=== PATIENT | female | born 1935 | race African-American/Black ===

== ENCOUNTER 2016-11-29 19:23 | Inpatient (IN) | payer MEDICARE, MEDICAID ==
[~2016-11-29] VITALS: Ht 175.3 cm; Wt 71.0 kg
[~2016-11-29 19:23] MED LIST: ARIC10TA PO; DOCU1CAP39 PO; GABA300C3 PO; HYDR-3111 PO; METH5TAB4 PO; METO50TA PO; ROBISYP PO; [UNRECOGNIZED DRUG - CODE] PO
[2016-11-29 19:38] VITALS: BP 198/98; PULSE 105; RESP 18; TEMP 97.4; O2SAT 95
--- NOTE | 2016-11-29 19:43 | PD ---
HPI Chief Complaint: hypertension Time Seen by Provider: 19:36 Travel History International Travel<30 days: No Contact w/Intl Traveler<30days: No History of Present Illness HPI The patient is a 81 year old female who presents to the [facility] emergency department with a history of generalized weakness, increased fatigue today, associated with elevated blood pressure. Initially it was told that the patient's metoprolol was discontinued yesterday according to ambulance services , however I was then informed that the patient's metoprolol was not controlling her blood pressure today, therefore clonidine was administered in the afternoon at 0.1 mg by mouth 1. The patient has had nausea and vomiting 2. The patient having nausea at this time. According to the long-term and ambulance services the patient is normally alert and oriented 2. The patient appears to be at her baseline of mentation at this time. The patient has a cough on examination. She denies being aware of when this began. Upon ambulance services arrival the patient was noted to have O2 saturations on room air of 90%. Her blood sugar prior to arrival was 109. On review of systems, the patient denies having any known fevers, neck pain, chest pain, shortness of breath, abdominal pain, diarrhea, urinary symptoms, or new neurologic symptoms. 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 AICD: No Genitourinary Surgery: No Neurologic Surgery: Yes (SDH WITH CLIPPING) Pacemaker: No Other Surgery: Yes (SHUNT (HYDROCEPHALUS)) Social History Alcohol Use: No Tobacco Use: No Substance Use: No Allergies-Medications (Allergen,Severity, Reaction): Coded Allergies: MRI PRECAUTION (Verified Adverse Reaction, Unknown, PT HAS ANUERYSM CLIPS , 02/12/12) Reported Meds & Prescriptions Reported Meds & Active Scripts Active Reported Clonidine (Clonidine HCl) 0.1 Mg Tab 0.1 Mg PO DAILY PRN Citroma Liq (Magnesium Citrate) 300 Ml Liq 300 Ml PO IN AM PRN Lipitor (Atorvastatin Calcium) 10 Mg Tab 10 Mg PO HS Voltaren (Diclofenac Sodium) 1 % Gel..gram. 1 Applic TOPICAL Q8HR PRN Apply to bilateral knees Oxycodone (Oxycodone HCl) 10 Mg Tab 10 Mg PO Q6H PRN Zofran (Ondansetron HCl) 4 Mg Tab 4 Mg PO Q6HR PRN Namenda Xr (Memantine) 14 Mg Caper 14 Mg PO DAILY Milk of Magnesia Liq (Magnesium Hydroxide) 400 Mg/5 Ml Susp 30 Ml PO HS PRN Lopressor (Metoprolol Tartrate) 50 Mg Tab 50 Mg PO BID Methimazole 5 Mg Tab 7.5 Mg PO BID Gabapentin 600 Mg Tab 600 Mg PO TID Enema Disposable (Sodium Phosphates) 19 Gram-7 Gram/118 Ml Lorenza 1 Applic RECTAL ONCE PRN Dulcolax Supp (Bisacodyl) 10 Mg Supp 10 Mg RECTAL IN AM PRN Aricept (Donepezil HCl) 10 Mg Tablet 10 Mg PO HS Colace (Docusate Sodium) 100 Mg Capsule 100 Mg PO HS Cymbalta DR (Duloxetine HCl) 20 Mg Capdr 20 Mg PO BID Review of Systems Except as stated in HPI: all other systems reviewed are Neg General / Constitutional: No: Fever Eyes: No: Visual changes HENT: Positive: Congestion, No: Headaches Cardiovascular: No: Chest Pain or Discomfort Respiratory: Positive: Cough, No: Shortness of Breath Gastrointestinal: Positive: Nausea, Vomiting, Loss of Appetite (that began today), No: Diarrhea, Abdominal Pain, Changes in Bowel Habits, Indigestion Genitourinary: No: Dysuria Musculoskeletal: No: Pain Skin: No Rash Neurologic: No: Weakness Psychiatric: No: Depression Endocrine: No: Polydipsia Hematologic/Lymphatic: No: Easy Bruising Physical Exam Narrative General: The patient is a well-developed well-nourished female in no acute distress. Head and Neck exam: Head is normocephalic atraumatic. Eyes: EOMI, pupils are equal round and reactive to light. Nose: Midline septum with pink mucous membranes Mouth: Dentition unremarkable. Moist mucus membranes. Posterior oropharynx is not erythematous. No tonsillar hypertrophy. Uvula midline. Airway patent. Neck: No palpable lymphadenopathy. No nuchal rigidity. No thyromegaly. Cardiovascular: Sinus tachycardia in the low 100 without murmurs, gallops, or rubs. No pulse deficit to the extremities and simultaneous auscultation and palpation of her radial artery. Lungs: The patient has scattered rhonchi in bilateral lung novak with a productive sounding cough on examination. Abdomen: Soft, without tenderness to palpation in all 4 quadrants of the abdomen. No guarding, rebound, or rigidity. Normal bowel sounds are audible. No tenderness on palpation of McBurney's point. Extremities: No clubbing, cyanosis, or edema. 2+ pulses in all 4 extremities. 2+ pulses in all 4 extremities. The patient has contractures noted of the left upper and left lower extremity related to her prior stroke. Back: No costovertebral angle tenderness to palpation. Neurologic Exam: Strength is 5 over 5 in the right upper and right lower extremity. The patient's strength in her left upper and left lower extremity are diminished with paresis related to her prior stroke. No evidence of facial asymmetry. The patient does have contractures noted of her left upper and left lower extremity. The patient appears to be at her baseline regarding her neurologic exam. Skin Exam: No rash noted. Intact skin that is warm and dry. The patient is somewhat pale appearing on exam. Data Data Last Documented VS Vital Signs Date Time Temp Pulse Resp B/P (MAP) Pulse Ox O2 Delivery O2 Flow Rate FiO2 11/29/16 21:06 90 18 151/92 (111) 96 Nasal Cannula 2.00 11/29/16 19:38 97.4 Orders Orders Electrocardiogram (11/29/16 19:36) Complete Blood Count With Diff (11/29/16 19:36) Comprehensive Metabolic Panel (11/29/16 19:36) Creatine Kinase (Cpk) (11/29/16 19:36) Ckmb (Isoenzyme) Profile (11/29/16 19:36) Troponin I (11/29/16 19:36) B-Type Natriuretic Peptide (11/29/16 19:36) Prothrombin Time / Inr (Pt) (11/29/16 19:36) Act Partial Throm Time (Ptt) (11/29/16 19:36) Blood Culture (11/29/16 19:36) Lipase (11/29/16 19:36) Urinalysis - C+S If Indicated (11/29/16 19:36) Magnesium (Mg) (11/29/16 19:36) Chest, Single Ap (11/29/16 19:36) Ct Brain W/O Iv Contrast(Rout) (11/29/16 19:36) Iv Access Insert/Monitor (11/29/16 19:36) Ecg Monitoring (11/29/16 19:36) Oximetry (11/29/16 19:36) Lactic Acid Sepsis Protocol (11/29/16 19:36) Sodium Chlor 0.9% 250 Ml Inj (Ns 250 Ml (11/29/16 19:45) Metoclopramide Inj (Reglan Inj) (11/29/16 19:45) Cath For Specimen (11/29/16 19:51) Labetalol Inj (Trandate Inj) (11/29/16 20:15) Urinary Catheter Insert/Apply (11/29/16 20:31) Sodium Chlor 0.9% 1000 Ml Inj (Ns 1000 M (11/29/16 21:15) Sodium Chlor 0.9% 1000 Ml Inj (Ns 1000 M (11/29/16 21:15) Metronidazole 500 Mg Inj (Flagyl 500 Mg (11/29/16 21:15) Cefepime Inj (Maxipime Inj) (11/29/16 21:15) Aztreonam Inj (Azactam Inj) (11/29/16 21:15) Admit Order (Ed Use Only) (11/29/16 22:03) Labs Laboratory Tests Test 11/29/16 20:00 11/29/16 20:45 White Blood Count 20.9 TH/MM3 Red Blood Count 5.46 MIL/MM3 Hemoglobin 14.8 GM/DL Hematocrit 46.5 % Mean Corpuscular Volume 85.1 FL Mean Corpuscular Hemoglobin 27.1 PG Mean Corpuscular Hemoglobin Concent 31.8 % Red Cell Distribution Width 14.2 % Platelet Count 235 TH/MM3 Mean Platelet Volume 8.9 FL Neutrophils (%) (Auto) 91.1 % Lymphocytes (%) (Auto) 5.9 % Monocytes (%) (Auto) 2.6 % Eosinophils (%) (Auto) 0.0 % Basophils (%) (Auto) 0.4 % Neutrophils # (Auto) 19.0 TH/MM3 Lymphocytes # (Auto) 1.2 TH/MM3 Monocytes # (Auto) 0.6 TH/MM3 Eosinophils # (Auto) 0.0 TH/MM3 Basophils # (Auto) 0.1 TH/MM3 CBC Comment AUTO DIFF Differential Total Cells Counted 100 Neutrophils % (Manual) 94 % Band Neutrophils % 2 % Lymphocytes % 4 % Neutrophils # (Manual) 20.1 TH/MM3 Differential Comment FINAL DIFF MANUAL Platelet Estimate NORMAL Platelet Morphology Comment NORMAL Red Cell Morphology Comment NORMAL Prothrombin Time 11.0 SEC Prothromb Time International Ratio 1.0 RATIO Activated Partial Thromboplast Time 25.1 SEC Lactic Acid Level 2.4 mmol/L B-Type Natriuretic Peptide 29 PG/ML Blood Urea Nitrogen 16 MG/DL Creatinine 0.78 MG/DL Random Glucose 219 MG/DL Total Protein 7.1 GM/DL Albumin 3.0 GM/DL Calcium Level 8.0 MG/DL Magnesium Level 1.7 MG/DL Alkaline Phosphatase 90 U/L Aspartate Amino Transf (AST/SGOT) 22 U/L Alanine Aminotransferase (ALT/SGPT) 20 U/L Total Bilirubin 0.3 MG/DL Sodium Level 140 MEQ/L Potassium Level 3.4 MEQ/L Chloride Level 105 MEQ/L Carbon Dioxide Level 24.9 MEQ/L Anion Gap 10 MEQ/L Estimat Glomerular Filtration Rate 86 ML/MIN Total Creatine Kinase 73 U/L Troponin I 0.02 NG/ML Lipase 97 U/L [facility] Medical Decision Making Medical Screen Exam Complete: Yes Emergency Medical Condition: Yes Medical Record Reviewed: Yes Interpretation(s) Last Impressions Chest X-Ray 11/29/161935 Signed Impressions: Service Date/Time: Tuesday, November 29, 2016 19:51 - CONCLUSION: 1. Optimal rotated exam. 2. Increased opacity over the right lung which likely is artifactual. There is no focal consolidation. 3. A repeat standard 2 view chest exam may be helpful for further evaluation. Danish Galvez MD Differential Diagnosis Intracranial abnormality such as mass, versus shunt malfunction, versus gastroenteritis, versus bowel obstruction, versus intracranial hemorrhage, versus pneumonia, versus aspiration Narrative Course During the course of the patients emergency department visit, the patients history, examination, and differential diagnosis were reviewed with the patient. The patient had IV access obtained and blood work sent for analysis. The patient was placed on a engine monitor with oximetry and blood pressure monitoring. An ECG was done. The patient's ECG reveals a sinus tachycardia rate of 107, nonspecific ST segment depression is noted in V3, QRS duration is 74 ms, QTC [address] segment elevation is noted. The patient was initially provided normal saline 250 mL bolus 1. Reglan 5 mg IV for nausea and vomiting. As the patient is tachycardic and hypertensive with a systolic blood pressure in the 190s patient will be given a dose of labetalol IV. The patients laboratory studies were reviewed and remarkable for a white count of 20.9, hemoglobin 14.8, platelets 235 with neutrophils 91.1, leukocytes 5.9, lactic acid is elevated at 2.4, given the patient's elevated white count and elevated lactate am concerned about the possibility of sepsis. The patient was started on a 30 mL per KG fluid bolus. The patient was covered with antibiotic consistent with a respiratory pathogen along with aspiration coverage. The patient was given cefepime 2 g IV, Zithromax 500 IV, Flagyl 500 IV. CMP is remarkable for potassium of 3.4, glucose 219, calcium 8.0, albumin 3.0, lipase 97, BNP is 29, PT 11, INR 1.0, PTT 25.1. Radiology studies were reviewed and remarkable for a chest x-ray that shows an optimal rotated exam, increased opacity over the right lung which it represent artifact. No focal consolidation. The patient was feeling improved during her emergency department visit, heart rate came down to 90, blood pressure 151/92, O2 saturation on [address] scan of the brain shows no acute hemorrhage or mass effect, remote postsurgical change with encephalomalacia in the anterior right temporal horn and ex vacuo change involving the right temporal horn. Lateral ventricles and third ventricle are moderately dilated a shunt catheter is in place comparison with old outside CTs would be helpful to evaluate for possible interval change. I reviewed the patient's electronic medical record shows that she did have some dilatation in spite of her ventriculoperitoneal shunt being placed in a CT scan reading that was done in 2003. Given the fact that the patient is awake and alert and is at her baseline neurologic exam at this point shunt malfunction is less likely. The patient will have repeat neurologic examinations done during her hospitalization to assess for any decline in mentation. The patients results were discussed with the patient, including the plan of care. I explained that further testing and/ or monitoring is indicated based on the patients history, examination, and/ or laboratory findings. Therefore, I recommended admission for additional evaluation. The patient expressed understanding and was agreeable with this plan. The patient was admitted to the hospital in stable condition and [facility] Critical Care Narrative Aggregate critical care time was 35 minutes. Time to perform other separately billable procedures was not included in the critical care time. My time did not include minutes spent treating any other patients simultaneously or on activities that did not directly contribute to the patient's treatment. The services I provided to this patient were to treat and/or prevent clinically significant deterioration that could result in: I provided critical care services requiring my management, as noted below: Chart data review, documentation time, medication orders and management, vital sign assessments/reviewing monitor data, ordering and reviewing lab tests, ordering and interpreting/reviewing x-rays and diagnostic studies, care of the patient and discussion of the patient with the admitting physicians. Sepsis Criteria SIRS Criteria (2 or more): Heart rate over 90, WBC > 32821, < 4000 or > 10% bands Sepsis Criteria (SIRS+source): Infect source susp/known Severe Sepsis (+one): Lactate >2 Criteria Outcome: Meets SIRS criteria, Meets sepsis criteria, Meets severe sepsis criteria Physician Communication Physician Communication The patient's case was discussed with Dr. Galeano who did agree to admit the patient for further evaluation and treatment at this time. Diagnosis Primary Impression: Pneumonia Qualified Codes: J18.9 - Pneumonia, unspecified organism Additional Impression: Sepsis Qualified Codes: A41.9 - Sepsis, unspecified organism Admitting Information Admitting Physician Requests: Sharyn Torres MD Nov 29, 2016 19:43
[2016-11-29] MEDS ORDERED: SODIUM CHLOR 0.9% 250 ML INJ 250 ML IV ONE (19:45)
[2016-11-29] MEDS ORDERED: METOCLOPRAMIDE HCL 10 MG/2 ML VIAL IV PUSH ONE (19:45)
--- NOTE | 2016-11-29 19:58 | RADRPT ---
EXAM DATE/TIME: 11/29/2016 19:51 [facility] COMPARISON: No previous studies available for comparison. INDICATIONS : Cough MEDICAL HISTORY : None. SURGICAL HISTORY : None. ENCOUNTER: Initial ACUITY: 1 day PAIN SCORE: Non-responsive. LOCATION: chest FINDINGS: The patient is mildly tilted to the left. There is overlying catheter or shunt tubing. There are mult iple overlying electrocardiogram leads. The heart size is within normal limits. There is mild hazy op acity over the right lung which may be artifactual. There is no focal consolidation or effusion. The bony thorax is intact. CONCLUSION: 1. Optimal rotated exam. 2. Increased opacity over the right lung which likely is artifactual. There is no focal consolidation . 3. A repeat standard 2 view chest exam may be helpful for further evaluation. Danish Galvez MD on November 29, 2016 at 19:55 Board Certified Radiologist. This report was verified electronically.
[2016-11-29] MEDS ORDERED: LIPI10TA PO (20:07)
[2016-11-29] MEDS ORDERED: ARIC10TA2 PO (20:07)
[2016-11-29] MEDS ORDERED: CLON0.1T PO (20:07)
[2016-11-29] MEDS ORDERED: DULO20 PO (20:07)
[2016-11-29] MEDS ORDERED: OXYC-395 PO (20:07)
[2016-11-29] MEDS ORDERED: GABA600T PO (20:07)
[2016-11-29] MEDS ORDERED: METO-309 PO (20:07)
[2016-11-29] MEDS ORDERED: MEMA14CA PO (20:07)
[2016-11-29] MEDS ORDERED: ENEMENE5 RECTAL (20:07)
[2016-11-29] MEDS ORDERED: VOLT1GEL4 TOPICAL (20:07)
[2016-11-29] MEDS ORDERED: ZOFR4TAB PO (20:07)
[2016-11-29] MEDS ORDERED: MILKSUS PO (20:07)
[2016-11-29] MEDS ORDERED: METH5TAB4 PO (20:07)
[2016-11-29] MEDS ORDERED: DULC10SU3 RECTAL (20:07)
[2016-11-29] MEDS ORDERED: COLA100C PO (20:07)
[2016-11-29] MEDS ORDERED: CITRSOL4 PO (20:07)
[2016-11-29] MEDS ORDERED: LABETALOL HCL 100 MG/20 ML VIAL IV PUSH ONE (20:15)
[2016-11-29 20:18] VITALS: BP 191/89; PULSE 86; RESP 18; O2SAT 95
[2016-11-29 20:23] LABS: BASOPHIL # 0.1 TH/MM3 (0-0.2); BASOPHIL % 0.4 % (0.0-2.0); HEMATOCRIT 46.5 % (35.0-46.0); LYMPH % 5.9 % (9.0-44.0); LYMPHOCYTE # 1.2 TH/MM3 (1.0-4.8); MEAN CELL VOLUME 85.1 FL (80.0-100.0); MEAN CORPUSCULAR HEMOGLOBIN 27.1 PG (27.0-34.0); MEAN CORPUSCULAR HGB CONC 31.8 % (32.0-36.0); MONO % 2.6 % (0.0-8.0); NEUT % 91.1 % (16.0-70.0); PLATELET COUNT 235 TH/MM3 (150-450); RED BLOOD COUNT 5.46 MIL/MM3 (4.00-5.30); RED CELL DISTRIBUTION WIDTH 14.2 % (11.6-17.2); WHITE BLOOD COUNT 20.9 TH/MM3 (4.0-11.0)
[2016-11-29 20:31] LABS: HEMO FLAGS AUTO DIFF
[2016-11-29 20:40] VITALS: BP 159/93; PULSE 86; RESP 18; O2SAT 97
[2016-11-29 20:41] LABS: APTT (PATIENT) 25.1 SEC (24.3-30.1)
--- NOTE | 2016-11-29 20:51 | RADRPT ---
EXAM DATE/TIME: 11/29/2016 20:33 [facility] COMPARISON: No previous studies available for comparison. INDICATIONS : Weakness with high blood pressure. RADIATION DOSE: 33.94 CTDIvol (mGy) MEDICAL HISTORY : Hypertension. Aneurysm, intracranial. Hydrocephalus SURGICAL HISTORY : shunt and aneurysm clipping ENCOUNTER: Initial ACUITY: 1 day PAIN SCALE: 6/10 LOCATION: cranial TECHNIQUE: Multiple contiguous axial images were obtained of the head. Using automated exposure control and adj ustment of the mA and/or kV according to patient size, radiation dose was kept as low as reasonably a chievable to obtain optimal diagnostic quality images. DICOM format image data is available electro nically for review and comparison. FINDINGS: There is a ventricular shunt catheter in place via a left frontal approach with the tip in the l eft lateral ventricle. The lateral ventricles are diffusely prominent. There is focal encephalomalaci a involving the right anterior temporal lobe with ex vacuo change involving the temporal horn. The th ird ventricle is prominent as well. The fourth ventricle is within normal limits. There is no acute h emorrhage or mass effect. There is mild atrophic change. Mucosal thickening is present in the right m axillary sinus. There are remote post surgical changes status post right temporal parietal craniotomy . CONCLUSION: 1. No acute hemorrhage or mass effect. 2. Remote postsurgical changes with encephalomalacia in the anterior right temporal lobe and ex vacuo change involving the right temporal horn. 3. The lateral ventricles and third ventricle are moderately dilated. A shunt catheter is in place. 4. Comparison with any old outside CTs would be helpful to evaluate for interval change. Danish Galvez MD on November 29, 2016 at 20:46 Board Certified Radiologist. This report was verified electronically.
[2016-11-29 21:06] VITALS: BP 151/92; PULSE 90; RESP 18; O2SAT 96
[2016-11-29] MEDS ORDERED: SODIUM CHLOR 0.9% 1000 ML INJ 1,000 ML IV ONE (21:15)
[2016-11-29] MEDS ORDERED: metroNIDAZOLE 500 MG INJ 100 ML IV STA (21:15)
[2016-11-29] MEDS ORDERED: CEFEPIME INJ 2,000 MG in SODIUM CHLORIDE 0.9% INJ 100 ML IV STA (21:15)
[2016-11-29] MEDS ORDERED: SODIUM CHLOR 0.9% 1000 ML INJ 800 ML IV ONE (21:15)
[2016-11-29] MEDS ORDERED: AZTREONAM INJ 2,000 MG in SODIUM CHLORIDE 0.9% INJ 100 ML IV STA (21:15)
[2016-11-29 21:16] LABS: BANDS 2 % (0-6); NEUTROPHIL # MANUAL DIFF 20.1 TH/MM3 (1.8-7.7); PLATELET ESTIMATE SMEAR NORMAL (NORMAL); PLATELET MORPHOLOGY NORMAL (NORMAL); POLYS (SEG NEUTROPHILS) 94 % (16-70); SCAN/DIFF FINAL DIFF MANUAL; WBC DIFF SAMPLE 100
[2016-11-29 21:48] LABS: ALKALINE PHOSPHATASE 90 U/L (45-117); ALT (GPT) 20 U/L (10-53); ANION GAP 10 MEQ/L (5-15); AST (GOT) 22 U/L (15-37); BICARBONATE 24.9 MEQ/L (21.0-32.0); BLOOD UREA NITROGEN 16 MG/DL (7-18); CHLORIDE 105 MEQ/L (98-107); GLOMERULAR FILTRATION RATE 86 ML/MIN (>89); MAGNESIUM 1.7 MG/DL (1.5-2.5); POTASSIUM 3.4 MEQ/L (3.5-5.1); SODIUM (NA) 140 MEQ/L (136-145); TOTAL BILIRUBIN ADULT 0.3 MG/DL (0.2-1.0)
[2016-11-29 21:50] LABS: CREATINE KINASE 73 U/L (26-192)
[2016-11-29 22:11] VITALS: BP_SYST 124; BP_SYST 138; BP_DIAS 80; BP_DIAS 81; PULSE 85; RESP 18; O2SAT 94; O2SAT 96
[2016-11-29] MEDS ORDERED: BISACODYL 10 MG SUPP RECTAL PRN (22:15)
[2016-11-29] MEDS ORDERED: NALOXONE HCL 0.4 MG/ML AMP IV PRN (22:15)
[2016-11-29] MEDS ORDERED: METOCLOPRAMIDE HCL 10 MG/2 ML VIAL IV PUSH PRN (22:15)
[2016-11-29] MEDS ORDERED: MAGNESIUM HYDROXIDE SUSP 30 ML CUP PO PRN (22:15)
[2016-11-29] MEDS ORDERED: SODIUM CHLORIDE 0.9% FLUSH 10 ML FLUSH IV FLUSH PRN (22:15)
[2016-11-29] MEDS ORDERED: SENNOSIDES 8.6 MG TAB PO PRN (22:15)
[2016-11-29] MEDS ORDERED: cloNIDine HCL 0.1 MG TAB PO PRN (22:15)
[2016-11-29] MEDS ORDERED: ONDANSETRON HCL 4 MG/2 ML VIAL IVP PRN (22:15)
[2016-11-29 22:16] LABS: LACTIC ACID GHOST NOT REPORTABLE
[2016-11-29 22:18] LABS: BACTERIA, URINE OCC /hpf; BLOOD, URINE MOD (NEG); COMMENT (UR) CULT NOT INDICATED; CULTURE IF INDICATED CULT NOT INDICATED; GLUCOSE,URINE 300 mg/dL (NEG); KETONE, URINE 10 mg/dL (NEG); NITRITE,URINE NEG (NEG); SQUAMOUS EPITHELIAL CELL URINE 25 /hpf (0-5); URINE COLOR LIGHT-YELLOW (YELLW/STRAW)
[2016-11-29] MEDS: HEPARIN SODIUM - SQ 10,000 UNITS/ML VIAL SQ SCH (22:40)
--- NOTE | 2016-11-29 23:55 | HHI.HP ---
[facility] Sanjiv Kirk MD Admission Diagnosis Suspected aspiration pneumonia, sepsis Diagnoses: Chief Complaint: Weakness, nausea vomiting, change in mental status Travel History International Travel<30 Days: No Contact w/Intl Traveler <30 Da: No Traveled to Known Affected Are: No History of Present Illness 81 years old female group home resident brought to the ED with complaint of generalized weakness increased fatigue along with elevated blood , nausea and vomiting 2, in ED patient was found to have lactic acidosis of 2.4, leukocytosis of 20 K with left shift, severe hypertension 198/98. Patient laying in bed she is lethargic, she has grimacing for loud verbal and tactile stimuli she was able to finger grasp with her right hand not with the other limbs which are atrophic and contracted. Patient not able to give any history or information. CT of the head was found to have no acute hemorrhage or mass remote postsurgical changes with encephalomalacia in anterior right temporal lobe and ex vacuo change in folding right temporal horn lateral ventricles and third ventricle moderately dilated shunt catheter in place. UA revealed ketonuria and glucosuria positive leukocyte esterase with 6 WBC and positive bacteria. Review of Systems ROS Limitations: Altered Mental Status, Unresponsive, Poor Historian Past Family Social History Past Medical History Unobtainable Past Surgical History Unobtainable Allergies: Coded Allergies: MRI PRECAUTION (Verified Adverse Reaction, Unknown, PT HAS ANUERYSM CLIPS , 02/12/12) Family History Unobtainable Social History Unobtainable Physical Exam Vital Signs Vital Signs Date Time Temp Pulse Resp B/P (MAP) Pulse Ox O2 Delivery O2 Flow Rate FiO2 11/29/16 22:11 85 18 124/80 (95) 96 Nasal Cannula 2.00 11/29/16 21:06 90 18 151/92 (111) 96 Nasal Cannula 2.00 11/29/16 20:40 86 18 159/93 (115) 97 Room Air 11/29/16 20:18 86 18 191/89 (123) 95 Nasal Cannula 2.00 11/29/16 19:41 96 Nasal Cannula 2.00 11/29/16 19:38 97.4 105 18 198/98 (131 95 Physical Exam GENERAL: This is a frail elderly lady who is lethargic, not answering question SKIN: No rashes, warm and dry HEAD: Atraumatic. Normocephalic. EYES: Not able to examine patient resists to open her eyes ENT: Nose without bleeding, or drainage, Airway patent. NECK: Trachea midline. Supple CARDIOVASCULAR: Regular rate with positive 3/6 systolic murmur mostly in the aortic spot radiated to carotid RESPIRATORY: Fair air entry bilaterally. No wheezes, rales, or rhonchi. GASTROINTESTINAL: Abdomen soft, non-tender, nondistended. Positive bowel sounds MUSCULOSKELETAL: Positive contraction in the lower extremity and more on the left upper extremity NEUROLOGICAL: Lethargic with facial grimacing with painful and tactile stimuli Laboratory Laboratory Tests Test 11/29/16 20:00 11/29/16 20:45 11/29/16 22:00 11/29/16 22:30 White Blood Count 20.9 Red Blood Count 5.46 Hemoglobin 14.8 Hematocrit 46.5 Mean Corpuscular Volume 85.1 Mean Corpuscular Hemoglobin 27.1 Mean Corpuscular Hemoglobin Concent 31.8 Red Cell Distribution Width 14.2 Platelet Count 235 Mean Platelet Volume 8.9 Neutrophils (%) (Auto) 91.1 Lymphocytes (%) (Auto) 5.9 Monocytes (%) (Auto) 2.6 Eosinophils (%) (Auto) 0.0 Basophils (%) (Auto) 0.4 Neutrophils # (Auto) 19.0 Lymphocytes # (Auto) 1.2 Monocytes # (Auto) 0.6 Eosinophils # (Auto) 0.0 Basophils # (Auto) 0.1 CBC Comment AUTO DIFF Differential Total Cells Counted 100 Neutrophils % (Manual) 94 Band Neutrophils % 2 Lymphocytes % 4 Neutrophils # (Manual) 20.1 Differential Comment FINAL DIFF MANUAL Platelet Estimate NORMAL Platelet Morphology Comment NORMAL Red Cell Morphology Comment NORMAL Prothrombin Time 11.0 Prothromb Time International Ratio 1.0 Activated Partial Thromboplast Time 25.1 Lactic Acid Level 2.4 2.1 B-Type Natriuretic Peptide 29 Blood Urea Nitrogen 16 Creatinine 0.78 Random Glucose 219 Total Protein 7.1 Albumin 3.0 Calcium Level 8.0 Magnesium Level 1.7 Alkaline Phosphatase 90 Aspartate Amino Transf (AST/SGOT) 22 Alanine Aminotransferase (ALT/SGPT) 20 Total Bilirubin 0.3 Sodium Level 140 Potassium Level 3.4 Chloride Level 105 Carbon Dioxide Level 24.9 Anion Gap 10 Estimat Glomerular Filtration Rate 86 Total Creatine Kinase 73 Troponin I 0.02 Lipase 97 Urine Color LIGHT-YELLOW Urine Turbidity CLOUDY Urine pH 7.0 Urine Specific [place] 1.010 Urine Protein TRACE Urine Glucose (UA) 300 Urine Ketones 10 Urine Occult Blood MOD Urine Nitrite NEG Urine Bilirubin NEG Urine Urobilinogen LESS THAN 2.0 Urine Leukocyte Esterase SMALL Urine RBC 6 Urine WBC 6 Urine Squamous Epithelial Cells 25 Urine Bacteria OCC Microscopic Urinalysis Comment CULT NOT INDICATED Date/Time Source Procedure Growth Status 11/29/16 20:05 Blood Peripheral Aerobic Blood Culture Pending Received 11/29/16 20:05 Blood Peripheral Anaerobic Blood Culture Pending Received Result Diagram: 11/29/16199911/29/162044 Imaging Last Impressions Head CT 11/29/161935 Signed Impressions: Service Date/Time: Tuesday, November 29, 2016 20:33 - CONCLUSION: 1. No acute hemorrhage or mass effect. 2. Remote postsurgical changes with encephalomalacia in the anterior right temporal lobe and ex vacuo change involving the right temporal horn. 3. The lateral ventricles and third ventricle are moderately dilated. A shunt catheter is in place. 4. Comparison with any old outside CTs would be helpful to evaluate for interval change. Danish Galvez MD Chest X-Ray 11/29/161935 Signed Impressions: Service Date/Time: Tuesday, November 29, 2016 19:51 - CONCLUSION: 1. Optimal rotated exam. 2. Increased opacity over the right lung which likely is artifactual. There is no focal consolidation. 3. A repeat standard 2 view chest exam may be helpful for further evaluation. Danish Galvez MD Caprini VTE Risk Assessment Caprini VTE Risk Assessment: Mod/High Risk (score >= 2) Caprini Risk Assessment Model Point Value = 1 Point Value = 2 Point Value = 3 Point Value = 5 Age 41-60 Minor surgery BMI > 25 kg/m2 Swollen legs Varicose veins or History of unexplained or recurrent spontaneous Oral contraceptives or hormone replacement Sepsis (< 1 month) Serious lung disease, including pneumonia (< 1 month) Abnormal pulmonary function Acute myocardial infarction Congestive heart failure (< 1 month) History of inflammatory bowel disease Medical patient at bed rest Age 61-74 Arthroscopic surgery Major open surgery (> 45 min) Laparoscopic surgery (> 45 min) Malignancy Confined to bed (> 72 hours) Immobilizing plaster cast Central venous access Age >= 75 History of VTE Family history of VTE Factor V Leiden Prothrombin [id number] Lupus anticoagulant Anticardiolipin antibodies Elevated serum homocysteine Heparin-induced thrombocytopenia Other congenital or acquired thrombophilia Stroke (< 1 month) Elective arthroplasty Hip, pelvis, or leg fracture Acute spinal cord injury (< 1 month) Prophylaxis Regimen Total Risk Factor Score Risk Level Prophylaxis Regimen 0-1 Low Early ambulation 2 Moderate Order ONE of the following: *Sequential Compression Device (SCD) *Heparin 5000 units SQ BID 3-4 Higher Order ONE of the following medications: *Heparin 5000 units SQ TID *Enoxaparin/Lovenox 40 mg SQ daily (WT < 150 kg, CrCl > 30 mL/min) *Enoxaparin/Lovenox 30 mg SQ daily (WT < 150 kg, CrCl > 10-29 mL/min) *Enoxaparin/Lovenox 30 mg SQ BID (WT < 150 kg, CrCl > 30 mL/min) AND/OR *Sequential Compression Device (SCD) 5 or more Highest Order ONE of the following medications: *Heparin 5000 units SQ TID (Preferred with Epidurals) *Enoxaparin/Lovenox 40 mg SQ daily (WT < 150 kg, CrCl > 30 mL/min) *Enoxaparin/Lovenox 30 mg SQ daily (WT < 150 kg, CrCl > 10-29 mL/min) *Enoxaparin/Lovenox 30 mg SQ BID (WT < 150 kg, CrCl > 30 mL/min) AND *Sequential Compression Device (SCD) Assessment and Plan Assessment and Plan 81 years old female group home resident presented with Acute change in mental status rule out metabolic encephalopathy versus UTI Severe uncontrolled hypertension with tachycardia Relatively positive UA with WBC 9 positive leukocyte esterase, occasional bacteria Nausea and vomiting 2 episodes concerning off aspiration pneumonia Possible aspiration pneumonia, considering history of vomiting, positive haziness on chest x-ray Lactic acidosis Leukocytosis with left shift History of dementia> continue Aricept and Namenda H/O depression> continue duloxetine DVT prophylaxis Plan: Admit to observation Telemetry with close monitoring 1 dose of labetalol has been given which improved Hypertension and tachycardia we will resume Lopressor and clonidine as needed Chest x-ray reviewed by me showed lower consolidation they interpreted as atelectasis but with her clinical scenario is still suspicious for aspiration pneumonia Patient received dose of Azactam, cefepime and Flagyl in ED to cover for UTI and aspiration pneumonia will continue with cefepime and Avelox Await urine culture and sputum culture if available Consider covering MRSA if suspicion is high Iv fluid, repeat lactic acid in a.m. Patient given metoclopramide for nausea which improved her symptoms, continue PT OT for weakness Repeat CBC in a.m. to monitor for leukocytosis, monitor for any fever CV and heparin for DVT prophylaxis Discussed Condition With ED physician Jarvis Galeano MD Nov 29, 2016 23:55
[2016-11-30] VITALS (12 sets, daily range): BP systolic 95–118; BP diastolic 48–74; PULSE 67–86; RESP 16–18; TEMP 97.8–99.2; O2SAT 91–98
[2016-11-30] MEDS: SODIUM CHLOR 0.9% 1000 ML INJ 1,000 ML IV SCH ×3 (05:29→18:01)
[2016-11-30] MEDS: HEPARIN SODIUM - SQ 10,000 UNITS/ML VIAL SQ SCH ×3 (05:36→22:49)
[2016-11-30 07:35] LABS: AUTOMATED NEUTROPHIL # 8.4 TH/MM3 (1.8-7.7); BASOPHIL % 0.3 % (0.0-2.0); EOSINOPHIL % 0.3 % (0.0-4.0); HEMATOCRIT 38.5 % (35.0-46.0); HEMO FLAGS DIFF FINAL; LYMPH % 17.7 % (9.0-44.0); LYMPHOCYTE # 1.9 TH/MM3 (1.0-4.8); MEAN CELL VOLUME 86.2 FL (80.0-100.0); MEAN CORPUSCULAR HEMOGLOBIN 27.6 PG (27.0-34.0); MEAN CORPUSCULAR HGB CONC 32.1 % (32.0-36.0); MONO % 5.4 % (0.0-8.0); NEUT % 76.3 % (16.0-70.0); PLATELET COUNT 191 TH/MM3 (150-450); RED BLOOD COUNT 4.46 MIL/MM3 (4.00-5.30); RED CELL DISTRIBUTION WIDTH 14.2 % (11.6-17.2)
[2016-11-30] MEDS ORDERED: MOXIFLOXACIN 400 MG PREMIX 250 ML IV SCH (08:00)
[2016-11-30 08:05] LABS: BICARBONATE 28.3 MEQ/L (21.0-32.0); POTASSIUM 4.3 MEQ/L (3.5-5.1)
[2016-11-30] MEDS ORDERED: MEMANTINE 14 MG PO SCH (09:00)
[2016-11-30] MEDS ORDERED: CEFEPIME INJ 1,000 MG in SODIUM CHLORIDE 0.9% INJ 100 ML IV SCH (09:00)
[2016-11-30] MEDS: SODIUM CHLORIDE 0.9% FLUSH 10 ML FLUSH IV FLUSH SCH ×2 (09:00→21:00)
[2016-11-30] MEDS: METOPROLOL TARTRATE 50 MG TAB PO SCH ×2 (09:00→22:48)
[2016-11-30] MEDS: DOCUSATE SODIUM 50 MG/SENNA 8.6 MG TAB PO SCH ×2 (09:15→22:48)
[2016-11-30] MEDS: DULoxetine HCl DR 20 MG CAP PO SCH ×2 (09:15→22:55)
[2016-11-30] MEDS: GABAPENTIN 300 MG CAP PO SCH ×3 (09:15→18:04)
[2016-11-30] MEDS ORDERED: PILL SPLITTER OTHER PRN (10:15)
[2016-11-30] MEDS ORDERED: LEVOFLOXACIN 500 MG PREMIX INJ 100 ML IV SCH (10:15)
[2016-11-30] MEDS: METHIMAZOLE 5 MG TAB PO SCH ×2 (11:29→22:55)
--- NOTE | 2016-11-30 11:32 | HHI.PR ---
Subjective Remarks Follow up for sepsis, pneumonia, AMS. The patient is sleeping upon my arrival, easily awakens, oriented to person only, says she is in the senior living and date is Oct 2006. She does not realize she is in the hospital after multiple reminders. She has little insight into her medical history or events leading up to her admission. She denies any medical complaints including no fevers/ chills, lightheadedness, dizziness, weakness, fatigue, cough, congestion, chest pain, shortness of breath, abdominal or urinary complaints. She continuously asks for more juice throughout conversation. Objective Vitals Vital Signs Date Time Temp Pulse Resp B/P (MAP) Pulse Ox O2 Delivery O2 Flow Rate FiO2 11/30/16 07:58 97.9 67 16 105/51 (69) 96 11/30/16 07:23 93 Nasal Cannula 2.00 11/30/16 04:00 69 11/30/16 03:44 97.8 69 16 111/56 (74) 97 11/30/16 01:22 11/30/16 01:22 80 18 118/74 (89) 96 Nasal Cannula 2.00 11/29/16 22:11 85 18 124/80 (95) 96 Nasal Cannula 2.00 11/29/16 21:06 90 18 151/92 (111) 96 Nasal Cannula 2.00 11/29/16 20:40 86 18 159/93 (115) 97 Room Air 11/29/16 20:18 86 18 191/89 (123) 95 Nasal Cannula 2.00 11/29/16 19:41 96 Nasal Cannula 2.00 11/29/16 19:38 97.4 105 18 198/98 (131) 95 I/O 11/29/16 11/29/16 11/29/16 11/30/16 11/30/16 11/30/16 07:00 15:00 23:00 07:00 15:00 23:00 Intake Total 350 ml Balance 350 ml Intake IV Total 350 ml Result Diagram: 11/30/16 0648 11/30/16647 Imaging Last Impressions Head CT 11/29/161935 Signed Impressions: Service Date/Time: Tuesday, November 29, 2016 20:33 - CONCLUSION: 1. No acute hemorrhage or mass effect. 2. Remote postsurgical changes with encephalomalacia in the anterior right temporal lobe and ex vacuo change involving the right temporal horn. 3. The lateral ventricles and third ventricle are moderately dilated. A shunt catheter is in place. 4. Comparison with any old outside CTs would be helpful to evaluate for interval change. Danish Galvez MD Chest X-Ray 11/29/161935 Signed Impressions: Service Date/Time: Tuesday, November 29, 2016 19:51 - CONCLUSION: 1. Optimal rotated exam. 2. Increased opacity over the right lung which likely is artifactual. There is no focal consolidation. 3. A repeat standard 2 view chest exam may be helpful for further evaluation. Danish Galvez MD Objective Remarks GENERAL: Well-nourished, well-developed elderly female patient in [facility]. Sleeping upon my arrival, easily awakens to light touch. SKIN: Warm and dry. No rash. HEENT: Normocephalic. Atraumatic.Pupils equal and round. Mucous membranes pink and moist. NECK: Supple. Trachea midline. CARDIOVASCULAR: Regular rate and rhythm. S1, S2 noted. No murmur appreciated. RESPIRATORY: No accessory muscle use. Clear to auscultation. Breath sounds equal bilaterally. GASTROINTESTINAL: Abdomen soft, non-tender, nondistended. Normoactive bowel sounds x4. MUSCULOSKELETAL: No obvious deformities. Extremities without clubbing, cyanosis , or edema. NEUROLOGICAL: Awake and alert. Left sided hemiparesis with contracture of LUE/ LLE. 5/5 muscle strength in RUE/RLE. Normal speech. PSYCHIATRIC: Pleasantly confused mood; insight and judgment normal. Medications and IVs Current Medications Medications (Trade) Dose Ordered Sig/Adrián Route Start Time Stop Time Status Last Admin Sodium Chloride 1,000 ml @ 100 mls/hr Q10H IV 11/29/16 22:06 11/30/16 09:15 (NS Flush) 2 ml UNSCH PRN IV FLUSH 11/29/16 22:15 (NS Flush) 2 ml BID IV FLUSH 11/30/16 09:00 (Tylenol) 650 mg Q4H PRN PO 11/29/16 22:15 (Zofran Inj) 4 mg Q6H PRN IVP 11/29/16 22:15 (Reglan Inj) 5 mg Q6H PRN IV PUSH 11/29/16 22:15 (Heparin Inj) 5,000 units Q8HR SQ 11/29/16 22:15 11/30/16 05:36 (Narcan Inj) 0.4 mg UNSCH PRN IV 11/29/16 22:15 (Shalini-Colace) 1 tab BID PO 11/30/16 09:00 11/30/16 09:15 (Milk Of Magnesia Liq) 30 ml Q12H PRN PO 11/29/16 22:15 (Senokot) 17.2 mg Q12H PRN PO 11/29/16 22:15 (Dulcolax Supp) 10 mg DAILY PRN RECTAL 11/29/16 22:15 (Lipitor) 10 mg HS PO 11/30/16 21:00 (Catapres) 0.1 mg DAILY PRN PO 11/29/16 22:15 (Cymbalta Dr) 20 mg BID PO 11/30/16 09:00 11/30/16 09:15 (Neurontin) 600 mg TID PO 11/30/16 09:00 11/30/16 09:15 (Tapazole) 7.5 mg BID PO 11/30/16 09:00 (Lopressor) 50 mg BID PO 11/30/16 09:00 (Roxicodone) 10 mg Q6H PRN PO 11/29/16 22:15 (Aricept) 10 mg HS PO 11/30/16 21:00 Patient Own Medication PT OWN MED: Memant... DAILY PO 11/30/16 09:00 Future Hold Cefepime HCl 1000 mg/Sodium Chloride 100 ml @ 200 mls/hr Q12H IV 11/30/16 09:00 11/30/16 09:14 Levofloxacin/ Dextrose 100 ml @ 100 mls/hr Q24H IV 11/30/16 10:15 (Pill Splitter) 1 ea UNSCH PRN OTHER 11/30/16 10:15 Urinary Catheter: Yes Assessment to: Remove Date of Insertion: Nov 29, 2016 Date of Removal: Nov 30, 2016 A/P Problem List: (1) Sepsis ICD Code: A41.9 - Sepsis, unspecified organism Status: Acute (2) Pneumonia ICD Code: J18.9 - Pneumonia, unspecified organism Status: Acute Assessment and Plan 81-year-old female from senior living with known history of CVA with left hemiparesis, DM, HTN, dementia, thyroid disease, presents after being sent from senior living with AMS, weakness, fatigue, uncontrolled hypertension, and N/V x2. Acute Metabolic Encephalopathy: suspect multifactorial secondary to sepsis/ infection, dehydration, and hypertensive urgency. Head CT images reviewed, no acute findings; shows remote postsurgical changes with encephalomalacia right temporal lobe and ex vacuo change involving right temporal horn; lateral ventricles and third ventricle are moderately dilated with shunt catheter in place. -treat infection, suspected UTI and PNA, see below -monitor neuro checks -supportive treatment with IVF hydration -patient improving, continue to monitor Sepsis with Pneumonia & Possible UTI: patient unreliable historian; unable to verbalize symptoms. Meets sepsis criteria with +leukocytosis WBC 20.9K, tachycardia HR 105, and suspected source PNA and UTI. Lactic acid 2.4. -s/p IVF boluses, continue maintenance IVF and monitor lactic acid -continue on antibiotics -monitor blood cultures, no growth x1day HCAP with suspected aspiration pneumonia: Patient with N/Vx2 prior to arrival, concern for aspiration. CXR images reviewed by me, shows right lung opacity. WBC 20.9K. -continue on antibiotics with IV Zosyn and IV Azithro -patient much improved without Vanco-will hold off for now -incentive spirometry -ST consult for swallow eval UTI: UA with +leuks, WBCs, occ bacteria. Patient unable to verbalize symptoms however with encephalopathy, will treat -on antibiotics as above -check mandatory urine culture -discontinue oliveira Accelerated Hypertension: BP 198/98 upon arrival. S/p IV labetalol in ED, BP now well controlled -continue home medications -monitor BP, adjust antihypertensives as needed Dementia: chronic, stable -continue patient's home Aricept and Namenda Weakness: suspect secondary to acute infection as above -consult PT DVT Prophylaxis: Heparin sq Discharge Planning Discharge pending further clinical improvement. Admit to inpatient with sepsis. Likely needs additional 2-3 days of hospitalization. Problem Qualifiers (1) Sepsis: Qualified Codes: A41.9 - Sepsis, unspecified organism (2) Pneumonia: Qualified Codes: J18.9 - Pneumonia, unspecified organism Whit Encarnacion PA-C Nov 30, 2016 11:32
[2016-11-30] MEDS: PIPERACIL-TAZO 4.5 GM PREMIX 100 ML IV SCH ×2 (14:02→18:04)
--- NOTE | 2016-11-30 20:09 | EKG ---
Date Performed: 11/29/2016 Time Performed: 19:56:26 PTAGE: 81 years EKG: SINUS TACHYCARDIA POSSIBLE LEFT ATRIAL ENLARGEMENT MINIMAL ST DEPRESSION ABNORMAL RHYTHM EC G PREVIOUS TRACING : 04/30/2003 15.45 DOCTOR: Cristel Valente Interpretating Date/Time 11/30/2016 20:05:43
[2016-11-30] MEDS: DONEPEZIL HCL 5 MG TAB PO SCH (22:48)
[2016-11-30] MEDS: ATORVASTATIN 10 MG TAB PO SCH (22:48)
[2016-12-01] VITALS (8 sets, daily range): BP systolic 106–143; BP diastolic 52–67; PULSE 63–87; RESP 16–18; TEMP 98.4–99.5; O2SAT 92–99
[2016-12-01] MEDS: PIPERACIL-TAZO 4.5 GM PREMIX 100 ML IV SCH ×4 (00:50→18:14)
[2016-12-01] MEDS: HEPARIN SODIUM - SQ 10,000 UNITS/ML VIAL SQ SCH ×3 (05:13→20:26)
--- NOTE | 2016-12-01 06:16 | RADRPT ---
EXAM DATE/TIME: 12/01/2016 04:56 [place] COMPARISON: CHEST SINGLE AP, November 29, 2016, 19:51. INDICATIONS : Short of breath. MEDICAL HISTORY : Unobtainable. SURGICAL HISTORY : Unobtainable. ENCOUNTER: Subsequent ACUITY: 2 days PAIN SCORE: 0/10 LOCATION: Bilateral chest FINDINGS: Stable [employer] shunt tubing overlying the left hemithorax. The continued mild elevation of the left hemidi aphragm. Mild airspace disease at the right lung base. Cardiomediastinal contours are stable. Remaind er of the exam is unchanged. CONCLUSION: 1. Mild right lung base airspace disease, likely atelectasis. 2. No significant interval change. Grupo Adler MD on December 01, 2016 at 6:12 Board Certified Radiologist. This report was verified electronically.
[2016-12-01] MEDS: SODIUM CHLOR 0.9% 1000 ML INJ 1,000 ML IV SCH ×2 (06:32→13:31)
[2016-12-01] MEDS: SODIUM CHLORIDE 0.9% FLUSH 10 ML FLUSH IV FLUSH SCH ×2 (09:00→20:27)
--- NOTE | 2016-12-01 09:49 | HHI.PR ---
Subjective Remarks The patient was resting comfortably in bed. She complained of chronic leg pain that comes and goes. She had no other acute complaints. Discussed with nursing at the bedside. Objective Vitals Vital Signs Date Time Temp Pulse Resp B/P (MAP) Pulse Ox O2 Delivery O2 Flow Rate FiO2 12/01/16 08:00 98.4 64 16 113/59 (77) 99 12/01/16 05:30 99.3 70 16 126/59 (81) 99 12/01/16 00:45 99.5 87 16 106/52 (70) 92 11/30/16 21:31 82 11/30/16 20:52 98 Nasal Cannula 3.00 11/30/16 20:23 99.2 81 16 95/49 (64) 97 11/30/16 20:01 97.9 86 18 109/53 (71) 98 11/30/16 16:44 85 11/30/16 16:00 98.3 79 18 101/48 (65) 91 11/30/16 14:00 18 11/30/16 12:00 98.5 77 16 108/56 (73) 94 I/O 11/30/16 11/30/16 11/30/16 12/01/16 12/01/16 12/01/16 07:00 15:00 23:00 07:00 15:00 23:00 Intake Total 200 ml 100 ml 1091 ml Balance 200 ml 100 ml 1091 ml Intake Oral 0 ml IV Total 200 ml 100 ml 1091 ml # Voids 3 # Bowel Movements 0 Result Diagram: 11/30/16 0648 11/30/16 0648 Imaging Last Impressions Chest X-Ray 12/01/16 0600 Signed Impressions: Service Date/Time: Thursday, December 01, 2016 04:56 - CONCLUSION: 1. Mild right lung base airspace disease, likely atelectasis. 2. No significant interval change. Grupo Adler MD Head CT 11/29/161935 Signed Impressions: Service Date/Time: Tuesday, November 29, 2016 20:33 - CONCLUSION: 1. No acute hemorrhage or mass effect. 2. Remote postsurgical changes with encephalomalacia in the anterior right temporal lobe and ex vacuo change involving the right temporal horn. 3. The lateral ventricles and third ventricle are moderately dilated. A shunt catheter is in place. 4. Comparison with any old outside CTs would be helpful to evaluate for interval change. Danish Galvez MD Objective Remarks GENERAL: Well-nourished, well-developed elderly female patient in [facility]. SKIN: Warm and dry. No rash. HEENT: Normocephalic. Atraumatic.Pupils equal and round. Mucous membranes pink and moist. NECK: Supple. Trachea midline. CARDIOVASCULAR: Regular rate and rhythm. S1, S2 noted. No murmur appreciated. RESPIRATORY: No accessory muscle use. Clear to auscultation. Breath sounds equal bilaterally. GASTROINTESTINAL: Abdomen soft, non-tender, nondistended. Normoactive bowel sounds x4. MUSCULOSKELETAL: No obvious deformities. Extremities without clubbing, cyanosis , or edema. NEUROLOGICAL: Awake and alert. Left sided hemiparesis with contracture of LUE/ LLE. 5/5 muscle strength in RUE/RLE. Normal speech. PSYCHIATRIC: Mood and affect appropriate. Medications and IVs Current Medications Medications (Trade) Dose Ordered Sig/Adrián Route Start Time Stop Time Status Last Admin Sodium Chloride 1,000 ml @ 100 mls/hr Q10H IV 11/29/16 22:06 12/01/16 06:32 (NS Flush) 2 ml UNSCH PRN IV FLUSH 11/29/16 22:15 (NS Flush) 2 ml BID IV FLUSH 11/30/16 09:00 (Tylenol) 650 mg Q4H PRN PO 11/29/16 22:15 (Zofran Inj) 4 mg Q6H PRN IVP 11/29/16 22:15 (Reglan Inj) 5 mg Q6H PRN IV PUSH 11/29/16 22:15 (Heparin Inj) 5,000 units Q8HR SQ 11/29/16 22:15 12/01/16 05:13 (Narcan Inj) 0.4 mg UNSCH PRN IV 11/29/16 22:15 (Shalini-Colace) 1 tab BID PO 11/30/16 09:00 11/30/16 22:48 (Milk Of Magnesia Liq) 30 ml Q12H PRN PO 11/29/16 22:15 (Senokot) 17.2 mg Q12H PRN PO 11/29/16 22:15 (Dulcolax Supp) 10 mg DAILY PRN RECTAL 11/29/16 22:15 (Lipitor) 10 mg HS PO 11/30/16 21:00 11/30/16 22:48 (Catapres) 0.1 mg DAILY PRN PO 11/29/16 22:15 (Cymbalta Dr) 20 mg BID PO 11/30/16 09:00 11/30/16 22:55 (Neurontin) 600 mg TID PO 11/30/16 09:00 11/30/16 18:04 (Tapazole) 7.5 mg BID PO 11/30/16 09:00 11/30/16 22:55 (Lopressor) 50 mg BID PO 11/30/16 09:00 11/30/16 22:48 (Roxicodone) 10 mg Q6H PRN PO 11/29/16 22:15 11/30/16 19:47 (Aricept) 10 mg HS PO 11/30/16 21:00 11/30/16 22:48 Patient Own Medication PT OWN MED: Memant... DAILY PO 11/30/16 09:00 Future Hold (Pill Splitter) 1 ea UNSCH PRN OTHER 11/30/16 10:15 Piperacillin Sod/ Tazobactam Sod 100 ml @ 200 mls/hr Q6HR IV 11/30/16 12:00 12/01/16 05:13 Azithromycin 500 mg/Sodium Chloride 250 ml @ 250 mls/hr Q24H IV 12/01/16 09:00 Date of Insertion: Nov 29, 2016 Date of Removal: Nov 30, 2016 A/P Problem List: (1) Sepsis ICD Code: A41.9 - Sepsis, unspecified organism Status: Acute (2) Pneumonia ICD Code: J18.9 - Pneumonia, unspecified organism Status: Acute Assessment and Plan 81-year-old female from long-term with known history of CVA with left hemiparesis, DM, HTN, dementia, thyroid disease, presents after being sent from long-term with AMS, weakness, fatigue, uncontrolled hypertension, and N/V x2. Acute Metabolic Encephalopathy: suspect multifactorial secondary to sepsis/ infection, dehydration, and hypertensive urgency. Head CT images reviewed, no acute findings; shows remote postsurgical changes with encephalomalacia right temporal lobe and ex vacuo change involving right temporal horn; lateral ventricles and third ventricle are moderately dilated with shunt catheter in place. -treat infection, suspected UTI and PNA, see below -monitor neuro checks -supportive treatment with IVF hydration -patient improving, continue to monitor Sepsis with Pneumonia & Possible UTI: patient unreliable historian; unable to verbalize symptoms. Meets sepsis criteria with +leukocytosis WBC 20.9K, tachycardia HR 105, and suspected source PNA and UTI. Lactic acid 2.4. Chest x- ray with right basilar airspace disease which may be atelectasis. -s/p IVF boluses, continue maintenance IVF and monitor lactic acid -continue on antibiotics -monitor blood cultures, no growth x1day HCAP with suspected aspiration pneumonia: Patient with N/Vx2 prior to arrival, concern for aspiration. CXR images reviewed by me, shows right lung opacity. WBC 20.9K. Improved. -continue on antibiotics with IV Zosyn and IV Azithro. -incentive spirometry -ST consult for swallow eval UTI: UA with +leuks, WBCs, occ bacteria. Patient unable to verbalize symptoms however with encephalopathy, will treat -on antibiotics as above -check urine culture -discontinue [employer] Accelerated Hypertension: BP 198/98 upon arrival. S/p IV labetalol in ED, BP now well controlled -continue home medications -monitor BP, adjust antihypertensives as needed Dementia: chronic, stable -continue patient's home Aricept and Namenda Weakness: suspect secondary to acute infection as above -consult PT and OT. DVT Prophylaxis: Heparin sq Discharge Planning Anticipate discharge back to the SNF in 1-2 days Problem Qualifiers (1) Sepsis: Qualified Codes: A41.9 - Sepsis, unspecified organism (2) Pneumonia: Qualified Codes: J18.9 - Pneumonia, unspecified organism Danish Hopson DO Dec 01, 2016 09:49
[2016-12-01] MEDS: DOCUSATE SODIUM 50 MG/SENNA 8.6 MG TAB PO SCH ×2 (09:55→20:27)
[2016-12-01] MEDS: GABAPENTIN 300 MG CAP PO SCH ×3 (09:55→18:14)
[2016-12-01] MEDS: METOPROLOL TARTRATE 50 MG TAB PO SCH ×2 (09:55→20:27)
[2016-12-01] MEDS: AZITHROMYCIN INJ 500 MG in SODIUM CHLOR 0.9% 250 ML INJ 250 ML IV SCH (09:56)
[2016-12-01] MEDS: ACETAMINOPHEN 325 MG TAB PO PRN (12:06)
[2016-12-01] MEDS: METHIMAZOLE 5 MG TAB PO SCH ×2 (12:06→20:26)
[2016-12-01] MEDS: DULoxetine HCl DR 20 MG CAP PO SCH ×2 (12:06→20:27)
[2016-12-01 16:12] LABS: AUTOMATED NEUTROPHIL # 3.6 TH/MM3 (1.8-7.7); BASOPHIL % 0.7 % (0.0-2.0); EOSINOPHIL # 0.2 TH/MM3 (0-0.4); EOSINOPHIL % 3.9 % (0.0-4.0); HEMATOCRIT 34.6 % (35.0-46.0); HEMO FLAGS DIFF FINAL; LYMPH % 31.4 % (9.0-44.0); MEAN CELL VOLUME 85.7 FL (80.0-100.0); MEAN CORPUSCULAR HEMOGLOBIN 27.7 PG (27.0-34.0); MEAN CORPUSCULAR HGB CONC 32.4 % (32.0-36.0); MONO % 7.4 % (0.0-8.0); NEUT % 56.6 % (16.0-70.0); PLATELET COUNT 148 TH/MM3 (150-450); RED BLOOD COUNT 4.04 MIL/MM3 (4.00-5.30); RED CELL DISTRIBUTION WIDTH 14.5 % (11.6-17.2); WHITE BLOOD COUNT 6.3 TH/MM3 (4.0-11.0)
[2016-12-01 16:34] LABS: BICARBONATE 27.1 MEQ/L (21.0-32.0); POTASSIUM 3.7 MEQ/L (3.5-5.1)
[2016-12-01] MEDS: DONEPEZIL HCL 5 MG TAB PO SCH (20:26)
[2016-12-01] MEDS: ATORVASTATIN 10 MG TAB PO SCH (20:27)
[2016-12-02] VITALS (7 sets, daily range): BP systolic 119–147; BP diastolic 56–69; PULSE 69–88; RESP 16–19; TEMP 98.1–99.2; O2SAT 92–99
[2016-12-02] MEDS: SODIUM CHLOR 0.9% 1000 ML INJ 1,000 ML IV SCH ×2 (00:06→10:52)
[2016-12-02] MEDS: PIPERACIL-TAZO 4.5 GM PREMIX 100 ML IV SCH ×2 (00:24→06:16)
[2016-12-02] MEDS: ACETAMINOPHEN 325 MG TAB PO PRN (00:24)
[2016-12-02] MEDS: HEPARIN SODIUM - SQ 10,000 UNITS/ML VIAL SQ SCH ×3 (06:16→20:47)
[2016-12-02] MEDS: SODIUM CHLORIDE 0.9% FLUSH 10 ML FLUSH IV FLUSH SCH ×2 (09:00→20:48)
[2016-12-02] MEDS: DULoxetine HCl DR 20 MG CAP PO SCH ×2 (10:53→20:48)
[2016-12-02] MEDS: METOPROLOL TARTRATE 50 MG TAB PO SCH ×2 (10:53→20:48)
[2016-12-02] MEDS: METHIMAZOLE 5 MG TAB PO SCH ×2 (10:53→20:48)
[2016-12-02] MEDS: GABAPENTIN 300 MG CAP PO SCH ×3 (10:53→18:20)
[2016-12-02] MEDS: DOCUSATE SODIUM 50 MG/SENNA 8.6 MG TAB PO SCH ×2 (10:53→20:48)
[2016-12-02] MEDS: AZITHROMYCIN INJ 500 MG in SODIUM CHLOR 0.9% 250 ML INJ 250 ML IV SCH (10:54)
--- NOTE | 2016-12-02 12:12 | HHI.PR ---
Subjective Remarks Follow-up for sepsis, UTI and pneumonia During the interview patient's nurse tech at the bedside. Patient has no complaints. She is able to tell me location or name. She could not tell me the day. Patient is able to have an appropriate conversation with me. Denied any shortness of breathing, cough, and abdominal pain. Objective Vitals Vital Signs Date Time Temp Pulse Resp B/P (MAP) Pulse Ox O2 Delivery O2 Flow Rate FiO2 12/02/16 08:00 98.1 79 19 119/56 (77) 94 12/02/16 04:20 98.1 69 16 124/59 (80) 92 12/01/16 23:57 98.6 70 16 143/67 (92) 94 12/01/16 20:26 98.4 76 16 109/54 (72) 94 12/01/16 16:00 98.6 63 18 112/58 (76) 92 I/O 12/01/16 12/01/16 12/01/16 12/02/16 12/02/16 12/02/16 06:59 14:59 22:59 06:59 14:59 22:59 Intake Total 1091 ml 2110 ml 1340 ml 100 ml Output Total 720 ml Balance 1091 ml 1390 ml 1340 ml 100 ml Intake Oral 0 ml 720 ml 240 ml IV Total 1091 ml 1390 ml 1100 ml 100 ml Output Urine Total 720 ml # Voids 3 3 5 # Bowel Movements 0 1 2 Result Diagram: 12/01/16 1540 12/01/16 1540 Objective Remarks GENERAL: Well-nourished, well-developed elderly female patient in [facility]. SKIN: Warm and dry. No rash. HEENT: Normocephalic. Atraumatic.Pupils equal and round. Mucous membranes pink and moist. NECK: Supple. Trachea midline. CARDIOVASCULAR: Regular rate and rhythm. S1, S2 noted. No murmur appreciated. RESPIRATORY: No accessory muscle use. Clear to auscultation. Breath sounds equal bilaterally. GASTROINTESTINAL: Abdomen soft, non-tender, nondistended. Normoactive bowel sounds x4. MUSCULOSKELETAL: No obvious deformities. Extremities without clubbing, cyanosis , or edema. NEUROLOGICAL: Awake and alert. Medications and IVs Current Medications Sodium Chloride 250 ml @ 250 mls/hr BOLUS ONCE IV Last administered on t 20:18; Start 11/29/16 at 19:45; Stop 11/29/16 at 20:44; Status DC Metoclopramide HCl (Reglan Inj) 5 mg ONCE ONCE IV PUSH Last administered on 20:23; Start 11/29/16 at 19:45; Stop 11/29/16 at 19:46; Status DC Labetalol HCl (Trandate Inj) 5 mg ONCE ONCE IV PUSH Last administered on 20:17; Start 11/29/16 at 20:15; Stop 11/29/16 at 20:16; Status DC Sodium Chloride 1,000 ml @ 1,000 mls/hr Q1H ONCE IV Last administered on 22:08; Start 11/29/16 at 21:15; Stop 11/29/16 at 22:14; Status DC Sodium Chloride 800 ml @ 1,000 mls/hr Q48M ONCE IV Last administered on 23:18; Start 11/29/16 at 21:15; Stop 11/29/16 at 22:02; Status DC Metronidazole 100 ml @ 100 mls/hr ONCE STAT IV Last administered on 11/29/16 23:18; Start 11/29/16 at 21:15; Stop 11/29/16 at 22:14; Status DC Cefepime HCl 2000 mg/Sodium Chloride 100 ml @ 200 mls/hr ONCE STAT IV Last administered on 11/29/16 22:08; Start 11/29/16 at 21:15; Stop 11/29/16 at 21:44; Status DC Aztreonam 2000 mg/ Sodium Chloride 100 ml @ 200 mls/hr ONCE STAT IV Last administered on 11/29/16 22:35; Start 11/29/16 at 21:15; Stop 11/29/16 at 21:44; Status DC Moxifloxacin HCl 250 ml @ 250 mls/hr Q24H IV ; Start 11/30/16 at 08:00; Stop 11/30/16 at 10:08; Status DC Sodium Chloride 1,000 ml @ 100 mls/hr Q10H IV Last administered on 12/02/16 10 :52; Start 11/29/16 at 22:06 Sodium Chloride (NS Flush) 2 ml UNSCH PRN IV FLUSH FLUSH AFTER USING IV ACCESS ; Start 11/29/16 at 22:15 Sodium Chloride (NS Flush) 2 ml BID IV FLUSH Last administered on 12/01/16 20: 27; Start 11/30/16 at 09:00 Acetaminophen (Tylenol) 650 mg Q4H PRN PO TEMP > 100.4/ pain 1-10 Last administered on 12/02/16 00:24; Start 11/29/16 at 22:15 Ondansetron HCl (Zofran Inj) 4 mg Q6H PRN IVP NAUSEA OR VOMITING; Start at 22:15 Metoclopramide HCl (Reglan Inj) 5 mg Q6H PRN IV PUSH NAUSEA OR VOMITING; Start 11/29/16 at 22:15 Heparin Sodium (Porcine) (Heparin Inj) 5,000 units Q8HR SQ Last administered on 12/02/16 06:16; Start 11/29/16 at 22:15 Naloxone HCl (Narcan Inj) 0.4 mg UNSCH PRN IV SEE LABEL COMMENTS; Start at 22:15 Senna/Docusate Sodium (Shalini-Colace) 1 tab BID PO Last administered on 12/02/16 10:53; Start 11/30/16 at 09:00 Magnesium Hydroxide (Milk Of Magnesia Liq) 30 ml Q12H PRN PO MILD - MODERATE CONSTIPATION; Start 11/29/16 at 22:15 Sennosides (Senokot) 17.2 mg Q12H PRN PO MODERATE - SEVERE CONSTIPATION; Start 11/29/16 at 22:15 Bisacodyl (Dulcolax Supp) 10 mg DAILY PRN RECTAL SEVERE CONSITIPATION; Start at 22:15 Atorvastatin Calcium (Lipitor) 10 mg HS PO Last administered on 12/01/16 20:27 ; Start 11/30/16 at 21:00 Clonidine (Catapres) 0.1 mg DAILY PRN PO High Blood Pressure; Start 11/29/16 at 22:15 Duloxetine HCl (Cymbalta Dr) 20 mg BID PO Last administered on 12/02/16 10:53; Start 11/30/16 at 09:00 Gabapentin (Neurontin) 600 mg TID PO Last administered on 12/02/16 10:53; Start 11/30/16 at 09:00 Methimazole (Tapazole) 7.5 mg BID PO Last administered on 12/02/16 10:53; Start 11/30/16 at 09:00 Metoprolol Tartrate (Lopressor) 50 mg BID PO Last administered on 12/02/16 10: 53; Start 11/30/16 at 09:00 Oxycodone HCl (Roxicodone) 10 mg Q6H PRN PO Severe Pain Last administered on 19:47; Start 11/29/16 at 22:15; Stop 12/01/16 at 09:57; Status DC Donepezil HCl (Aricept) 10 mg HS PO Last administered on 12/01/16 20:26; Start 11/30/16 at 21:00 Patient Own Medication PT OWN MED: Memant... DAILY PO ; Start 11/30/16 at 09:00; Status Future Hold Cefepime HCl 1000 mg/Sodium Chloride 100 ml @ 200 mls/hr Q12H IV Last administered on 11/30/16 09:14; Start 11/30/16 at 09:00; Stop 11/30/16 at 11:29; Status DC Levofloxacin/ Dextrose 100 ml @ 100 mls/hr Q24H IV Last administered on 11:28; Start 11/30/16 at 10:15; Stop 11/30/16 at 16:44; Status DC Miscellaneous (Pill Splitter) 1 ea UNSCH PRN OTHER SEE LABEL COMMENTS; Start at 10:15 Piperacillin Sod/ Tazobactam Sod 100 ml @ 200 mls/hr Q6HR IV Last administered on 12/02/16 06:16; Start 11/30/16 at 12:00 Azithromycin 500 mg/Sodium Chloride 250 ml @ 250 mls/hr Q24H IV Last administered on 12/02/16 10:54; Start 12/01/16 at 09:00 Date of Insertion: Nov 29, 2016 Date of Removal: Nov 30, 2016 A/P Problem List: (1) Sepsis ICD Code: A41.9 - Sepsis, unspecified organism Status: Acute (2) Pneumonia ICD Code: J18.9 - Pneumonia, unspecified organism Status: Acute Assessment and Plan 81-year-old female from long term with known history of CVA with left hemiparesis, DM, HTN, dementia, thyroid disease, presents after being sent from long term with AMS, weakness, fatigue, uncontrolled hypertension, and N/V x2. Acute Metabolic Encephalopathy: suspect multifactorial secondary to sepsis/ infection, dehydration, and hypertensive urgency. Head CT images reviewed, no acute findings; shows remote postsurgical changes with encephalomalacia right temporal lobe and ex vacuo change involving right temporal horn; lateral ventricles and third ventricle are moderately dilated with shunt catheter in place. -treat infection, suspected UTI and PNA, see below -monitor neuro checks -Seemed to resolve. Will DC fluids. Sepsis with Pneumonia & Possible UTI: patient unreliable historian; unable to verbalize symptoms. Meets sepsis criteria with +leukocytosis WBC 20.9K, tachycardia HR 105, and suspected source PNA and UTI. Lactic acid 2.4. Chest x- ray with right basilar airspace disease which may be atelectasis. -s/p IVF boluses, -Seemed to resolve. Blood cultures has been negative for 3 days. Will IV Zosyn and IV azithromycin. Chest x-ray was repeated yesterday which shows some mild atelectasis. Cultures showed proteus sensitivity reviewed. Will Patient on oral Augmentin, Flagyl and one more dose of azithromycin to complete treatment. Continue to monitor clinically. HCAP with suspected aspiration pneumonia: Patient with N/Vx2 prior to arrival, concern for aspiration. CXR images reviewed by me, shows right lung opacity. WBC 20.9K. Improved. -ST consult for swallow eval -See treatment as above. UTI: UA with +leuks, WBCs, occ bacteria. Patient unable to verbalize symptoms however with encephalopathy, will treat -Positive for Proteus. Will place patient on Augmentin. Accelerated Hypertension: BP 198/98 upon arrival. S/p IV labetalol in ED, BP now well controlled -continue home medications -monitor BP, adjust antihypertensives as needed Dementia: chronic, stable -continue patient's home Aricept and Namenda Weakness: suspect secondary to acute infection as above -PT OT consulted. This is most likely patient's baseline. She is long term bound. DVT Prophylaxis: Heparin sq Discharge Planning Will monitor patient on oral antibiotics and if she continued to do well she can be discharged to previous long term Problem Qualifiers (1) Sepsis: Qualified Codes: A41.9 - Sepsis, unspecified organism (2) Pneumonia: Qualified Codes: J18.9 - Pneumonia, unspecified organism Carrie Porras MD Dec 02, 2016 12:12
[2016-12-02] MEDS: metroNIDAZOLE 500 MG TAB PO SCH ×2 (18:21→20:47)
[2016-12-02] MEDS: AMOXICILLIN/CLAVULANATE K 875 MG TAB PO SCH ×2 (18:21→20:47)
[2016-12-02] MEDS: RESP: ALBUTEROL 2.5 MG/IPRATROPIUM 0.5 MG NEB (SCH) NEB (19:57)
[2016-12-02] MEDS: ATORVASTATIN 10 MG TAB PO SCH (20:47)
[2016-12-02] MEDS: DONEPEZIL HCL 5 MG TAB PO SCH (20:47)
[2016-12-03 00:17] VITALS: BP 150/85; PULSE 78; RESP 16; TEMP 98.9; O2SAT 93
[2016-12-03 04:00] VITALS: BP 132/75; PULSE 83; RESP 16; TEMP 98.4; O2SAT 95
[2016-12-03] MEDS: HEPARIN SODIUM - SQ 10,000 UNITS/ML VIAL SQ SCH ×2 (05:46→13:27)
[2016-12-03] MEDS: metroNIDAZOLE 500 MG TAB PO SCH ×2 (05:46→13:26)
[2016-12-03] MEDS: RESP: ALBUTEROL 2.5 MG/IPRATROPIUM 0.5 MG NEB (SCH) NEB ×2 (07:57→13:01)
[2016-12-03 07:58] VITALS: O2SAT 94
[2016-12-03 08:00] VITALS: BP 148/68; PULSE 85; RESP 18; TEMP 98.8; O2SAT 92
[2016-12-03] MEDS ORDERED: AZITHROMYCIN 250 MG TAB PO SCH (09:00)
[2016-12-03] MEDS: ACETAMINOPHEN 325 MG TAB PO PRN (09:30)
[2016-12-03] MEDS: METHIMAZOLE 5 MG TAB PO SCH (09:32)
[2016-12-03] MEDS: AMOXICILLIN/CLAVULANATE K 875 MG TAB PO SCH (09:32)
[2016-12-03] MEDS: DOCUSATE SODIUM 50 MG/SENNA 8.6 MG TAB PO SCH (09:33)
[2016-12-03] MEDS: METOPROLOL TARTRATE 50 MG TAB PO SCH (09:33)
[2016-12-03] MEDS: GABAPENTIN 300 MG CAP PO SCH ×2 (09:33→13:26)
[2016-12-03] MEDS: DULoxetine HCl DR 20 MG CAP PO SCH (09:33)
[2016-12-03 09:58] LABS: HEMATOCRIT 37.1 % (35.0-46.0); MEAN CELL VOLUME 84.9 FL (80.0-100.0); MEAN CORPUSCULAR HEMOGLOBIN 28.1 PG (27.0-34.0); PLATELET COUNT 159 TH/MM3 (150-450); RED BLOOD COUNT 4.37 MIL/MM3 (4.00-5.30); RED CELL DISTRIBUTION WIDTH 14.4 % (11.6-17.2); REVIEW FLAG FINAL; WHITE BLOOD COUNT 7.7 TH/MM3 (4.0-11.0)
[2016-12-03 10:27] LABS: BICARBONATE 26.7 MEQ/L (21.0-32.0); POTASSIUM 3.4 MEQ/L (3.5-5.1)
[2016-12-03 12:00] VITALS: BP 136/70; PULSE 81; RESP 18; TEMP 98; O2SAT 94
[2016-12-03] MEDS ORDERED: POTASSIUM CHLORIDE 20 MEQ CONTROLLED RELEASE TAB PO ONE (12:30)
[2016-12-03] MEDS ORDERED: METR-1 PO (12:56)
[2016-12-03] MEDS ORDERED: AMOX875T2 PO (12:56)
--- NOTE | 2016-12-03 12:58 | HHI.DS ---
Discharge Summary Admission Date Nov 30, 2016 at 06:59 Discharge Date: Dec 03, 2016 Admitting Diagnosis Suspected aspiration pneumonia, sepsis (1) Sepsis ICD Code: A41.9 - Sepsis, unspecified organism Diagnosis: Principal Status: Acute (2) Pneumonia ICD Code: J18.9 - Pneumonia, unspecified organism Status: Acute (3) UTI (urinary tract infection) ICD Code: N39.0 - Urinary tract infection, site not specified Diagnosis: Principal (4) Acute metabolic encephalopathy ICD Code: G93.41 - Metabolic encephalopathy Diagnosis: Principal Procedures see hospital course Brief History - From Admission 81 years old female care home resident brought to the ED with complaint of generalized weakness increased fatigue along with elevated blood , nausea and vomiting 2, in ED patient was found to have lactic acidosis of 2.4, leukocytosis of 20 K with left shift, severe hypertension 198/98. Patient laying in bed she is lethargic, she has grimacing for loud verbal and tactile stimuli she was able to finger grasp with her right hand not with the other limbs which are atrophic and contracted. Patient not able to give any history or information. CT of the head was found to have no acute hemorrhage or mass remote postsurgical changes with encephalomalacia in anterior right temporal lobe and ex vacuo change in folding right temporal horn lateral ventricles and third ventricle moderately dilated shunt catheter in place. UA revealed ketonuria and glucosuria positive leukocyte esterase with 6 WBC and positive bacteria. CBC/BMP: 12/03/16 0910 12/03/16 0910 Significant Findings Laboratory Tests Test 12/01/16 15:40 12/01/16 15:47 12/03/16 09:10 Hemoglobin 11.2 GM/DL (11.6-15.3) Hematocrit 34.6 % (35.0-46.0) Platelet Count 148 TH/MM3 (150-450) Calcium Level 8.0 MG/DL (8.5-10.1) Chloride Level 112 MEQ/L (98-107) 109 MEQ/L (98-107) Blood Urea Nitrogen 5 MG/DL (7-18) Random Glucose 114 MG/DL (74-106) Potassium Level 3.4 MEQ/L (3.5-5.1) Imaging Last Impressions Chest X-Ray 12/01/16 0600 Signed Impressions: Service Date/Time: Thursday, December 01, 2016 04:56 - CONCLUSION: 1. Mild right lung base airspace disease, likely atelectasis. 2. No significant interval change. Grupo Adler MD Head CT 11/29/16 1936 Signed Impressions: Service Date/Time: Tuesday, November 29, 2016 20:33 - CONCLUSION: 1. No acute hemorrhage or mass effect. 2. Remote postsurgical changes with encephalomalacia in the anterior right temporal lobe and ex vacuo change involving the right temporal horn. 3. The lateral ventricles and third ventricle are moderately dilated. A shunt catheter is in place. 4. Comparison with any old outside CTs would be helpful to evaluate for interval change. Danish Galvez MD PE at Discharge GENERAL: Well-nourished, well-developed elderly female patient in [facility]. SKIN: Warm and dry. No rash. HEENT: Normocephalic. atraumatic. Pupils equal and round. Mucous membranes pink and moist. NECK: Supple. Trachea midline. CARDIOVASCULAR: Regular rate and rhythm. S1, S2 noted. No murmur appreciated. RESPIRATORY: No accessory muscle use. Clear to auscultation. Breath sounds equal bilaterally. GASTROINTESTINAL: Abdomen soft, non-tender, nondistended. Normoactive bowel sounds x4. MUSCULOSKELETAL: No obvious deformities. Extremities without clubbing, cyanosis , or edema. NEUROLOGICAL: Awake and alert. Pt update on day of discharge Follow-up for infection patient did well off IV antibiotics. She had no complaints. Deny any shortness of breathing, chest pain, palpitation, lightheadedness/ dizziness. Dealt with patient's nurse no complaints. Hospital Course 81-year-old female from care home with known history of CVA with left hemiparesis, DM, HTN, dementia, thyroid disease, presents after being sent from care home with AMS, weakness, fatigue, uncontrolled hypertension, and N/V x2. Acute Metabolic Encephalopathy: suspect multifactorial secondary to sepsis/ infection, dehydration, and hypertensive urgency. Head CT images reviewed, no acute findings; shows remote postsurgical changes with encephalomalacia right temporal lobe and ex vacuo change involving right temporal horn; lateral ventricles and third ventricle are moderately dilated with shunt catheter in place. -Secondary to infection. Treat infection, suspected UTI and PNA, see below -Resolved with treatment. Sepsis with Pneumonia & Possible UTI: patient unreliable historian; unable to verbalize symptoms. Meets sepsis criteria with +leukocytosis WBC 20.9K, tachycardia HR 105, and suspected source PNA and UTI. Lactic acid 2.4. Chest x- ray with right basilar airspace disease which may be atelectasis. -Patient was treated empirically with IV Zosyn and IV azithromycin pending cultures. She was also given fluid resuscitation. -Blood culture obtained negative. -Chest x-ray was repeated yesterday which shows some mild atelectasis. Urine Cultures showed proteus sensitivity reviewed. Patient was transitioned to oral Augmentin and Flagyl and completed treatment azithromycin and continued to improve. HCAP with suspected aspiration pneumonia: Patient with N/Vx2 prior to arrival, concern for aspiration. CXR images reviewed by me, shows right lung opacity. WBC 20.9K. Improved. -ST consult for swallow eval -See treatment as above. UTI: UA with +leuks, WBCs, occ bacteria. -See treatment above. -Positive for Proteus. Will place patient on Augmentin. Accelerated Hypertension: BP 198/98 upon arrival. S/p IV labetalol in ED, BP now well controlled -Improved with treatment of infection. -continue home medications -monitor BP, adjust antihypertensives as needed Dementia: chronic, stable -continue patient's home Aricept and Namenda Weakness: suspect secondary to acute infection as above -PT/OT consulted. This is most likely patient's baseline. She is care home bound. Pt Condition on Discharge: Stable Discharge Disposition: Discharge to SNF Discharge Time: > 30 minutes Discharge Instructions DIET: Follow Instructions for: Heart Healthy Diet Speech Therapy-Diet Recommends: Mechanical Soft, Chopped Meat w/Gravy Activities you can perform: Regular-No Restrictions Follow up Referrals: SNF/[facility]/ - Daily New Medications: Oxycodone (Oxycodone) 5 Mg Cap 5 MG PO Q8H PRN for PAIN, #10 CAP 0 Refills Amoxicillin-Clavulanate (Amoxicillin-Clavulanate) 875-125 mg Tab 875 MG PO Q12HR for pneumonia and UTI, #14 TAB 0 Refills not for use in CrCl <30 mL/minute Metronidazole (Flagyl) 500 Mg Tab 500 MG PO Q8HR for aspiration pneumonia, #21 TAB 0 Refills Continued Medications: Atorvastatin (Lipitor) 10 Mg Tab 10 MG PO HS for Cholesterol Management, #30 TAB 0 Refills Bisacodyl Supp (Dulcolax Supp) 10 Mg Supp 10 MG RECTAL IN AM PRN for NO RESULTS FROM MILK OF MAG, #12 SUPP 0 Refills Clonidine (Clonidine) 0.1 Mg Tab 0.1 MG PO DAILY PRN for High Blood Pressure, #60 TAB 0 Refills Diclofenac Sodium (Voltaren) 1 % Gel..gram. 1 APPLIC TOPICAL Q8HR PRN for PAIN Apply to bilateral knees Docusate Sodium (Colace) 100 Mg Capsule 100 MG PO HS Donepezil HCl (Aricept) 10 Mg Tablet 10 MG PO HS for Dementia Duloxetine DR (Cymbalta DR) 20 Mg Capdr 20 MG PO BID, #30 CAP 0 Refills Gabapentin (Gabapentin) 600 Mg Tab 600 MG PO TID for Pain Management, #90 TAB 0 Refills Magnesium Citrate Liq (Citroma Liq) 300 Ml Liq 300 ML PO IN AM PRN for IF NO RESULTS FROM ENEMA, #1 BOTTLE 0 Refills Magnesium Hydroxide Liq (Milk of Magnesia Liq) 400 Mg/5 Ml Susp 30 ML PO HS PRN for NO BM IN 3 DAYS, #1 BOTTLE 0 Refills Memantine Er (Namenda Xr) 14 Mg Caper 14 MG PO DAILY for Alzheimer Disease, #30 CAP 0 Refills Methimazole (Methimazole) 5 Mg Tab 7.5 MG PO BID for Thyroid, #30 TAB 0 Refills Metoprolol Tartrate (Lopressor) 50 Mg Tab 50 MG PO BID, #60 TAB 0 Refills Ondansetron (Zofran) 4 Mg Tab 4 MG PO Q6HR PRN for NAUSEA OR VOMITING, TAB 0 Refills Sodium Phosphates (Enema Disposable) 19 Gram-7 Gram/118 Ml Lorenza 1 APPLIC RECTAL ONCE PRN for IF NO RESULTS FROM DULCOLAX Carrie Porras MD Dec 03, 2016 12:58
[2016-12-03] MEDS ORDERED: OXYC1CAP PO (13:34)
== END 2016-12-03 14:22 | DRG 871 ==
LOC: NEPE 19:23 → INTOOBSV 22:05 → NEDA 22:05 → NEPGCP 11-30 02:00 → OBSVTOIN 11-30 06:59 → N04B 11-30 20:23
PROVIDERS: ADMIT Family Medicine; ATTEND Family Medicine
DX: A41.9 Sepsis, unspecified organism (principal); J18.9 Pneumonia, unspecified organism; J69.0 Pneumonitis due to inhalation of food and vomit; G93.41 Metabolic encephalopathy; E87.2 Acidosis; N39.0 Urinary tract infection, site not specified; I69.354 Hemiplegia and hemiparesis following cerebral infarction affecting left non-dominant side; I10 Essential (primary) hypertension; M19.90 Unspecified osteoarthritis, unspecified site; F32.9 Major depressive disorder, single episode, unspecified; F03.90 Unspecified dementia, unspecified severity, without behavioral disturbance, psychotic disturbance, mood disturbance, and anxiety; E11.9 Type 2 diabetes mellitus without complications; Y95 Nosocomial condition; R53.1 Weakness; B96.4 Proteus (mirabilis) (morganii) as the cause of diseases classified elsewhere; E07.9 Disorder of thyroid, unspecified; Z98.2 Presence of cerebrospinal fluid drainage device
CPT/HCPCS: 51702; 70450; 71010; 80048; 80053; 81001; 82550; 82948; 83605; 83690; 83735; 83880; 84484; 85007; 85025; 85027; 85610; 85730; 87040; 87077; 87086; 87186; 93005; 94150; 94640; 94664; 96361; 96374; 96375; G0378; J0456; J0692; J1644; J1956; J2543; J2765; J7030; J7050